=== PATIENT | female | born 2000 | race Hispanic/Latino ===

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

== ENCOUNTER 2023-05-31 14:18 | Outpatient (CLI) | payer OTHER | END 2023-05-31 14:19 | disposition home or self-care (01) | LOC: ULT 14:18 | PROVIDERS: ATTEND Nurse Practitioner Women's Health | DX: T83.32XA Displacement of intrauterine contraceptive device, initial encounter (principal) | CPT/HCPCS: 76856 ==